=== PATIENT | male | born 1975 | race Caucasian/White ===

== ENCOUNTER 2020-06-22 11:11 | Inpatient (IN) | payer MEDICAID, OTHER ==
[~2020-06-22] VITALS: Ht 188 cm; Wt 129.1 kg
[2020-06-22] MEDS ORDERED: ASPirin 81 mg TAB PO ONE (11:45)
[2020-06-22 11:51] LABS: Basophils # (auto) 0 10 ^3/uL (0-0.2); Basophils % (auto) 0.3 % (0.0-2.0); Eosinophils # (auto) 0.4 10 ^3/uL (0-0.8); Eosinophils % (auto) 4.5 % (0.0-7.0); Hematocrit 45.4 % (41.0-53.0); Hemoglobin 15.4 g/dL (13.5-17.5); Lymphocytes # (auto) 2.8 10 ^3/uL (0.4-5.4); Lymphocytes % (auto) 29.9 % (10.0-50.0); Mean Corpuscular Hemoglobin 32.7 pg (28.0-32.0); Mean Corpuscular Hgb Conc. 33.9 g/dL (32.0-36.0); Mean Corpuscular Volume 96.5 fL (80.0-100.0); Monocytes # (auto) 0.6 10 ^3/uL (0-1.3); Monocytes % (auto) 6.4 % (0.0-12.0); Neutrophils # (auto) 5.6 10 ^3/uL (1.6-8.6); Neutrophils % (auto) 58.9 % (37.0-80.0); Nucleated Red Blood Cells % 0.1 %; Platelet Count (auto) 223 10^3/uL (140-450); Red Cell Distribution Width 14.3 % (11.8-14.3); White Blood Cell 9.5 10^3/uL (4.4-10.8)
[2020-06-22 12:07] LABS: INR 0.99 (0.9-1.15); Partial Thromboplastin Time 28.5 sec (23.0-31.2)
[2020-06-22 12:28] LABS: Alanine Aminotransferase 24 U/L (16-61); Albumin 3.4 g/dL (3.4-5.0); Anion Gap 9 (5-15); Aspartate Aminotransferase 18 U/L (15-37); BUN/Creatinine Ratio 11.3; Blood Urea Nitrogen 8 mg/dL (7-18); Calcium 8.2 mg/dL (8.5-10.1); Carbon Dioxide 24 mmol/L (21-32); Chloride 105 mmol/L (98-107); GFR African American 153 mL/min; GFR Non-African American 126 mL/min; Glucose 99 mg/dL (74-106); Magnesium 2.2 mg/dL (1.6-2.6); Potassium 4.1 mmol/L (3.5-5.1); Sodium 138 mmol/L (136-145)
[2020-06-22 12:33] LABS: Alkaline Phosphatase 87 U/L (45-117); Bilirubin, Total 0.4 mg/dL (0.2-1.0)
[2020-06-22] MEDS ORDERED: MORPHINE SULF INJ 2 MG/ML SYRINGE 1ML IV PRN ×2 (16:00)
[2020-06-22] MEDS ORDERED: NITROGLYCERIN 0.4 MG SL TAB SL PRN (16:00)
[2020-06-22] MEDS ORDERED: ONDANSETRON HCL 4 MG/2 ML VIAL IV PRN (16:00)
[2020-06-22] MEDS ORDERED: ACETAMINOPHEN 500 MG TAB PO PRN (16:00)
[2020-06-22] MEDS ORDERED: hydrALAZINE HCL 20 MG/ML VL IV PRN (16:00)
[2020-06-22] MEDS ORDERED: MORPHINE SULF INJ 2 MG/ML SYRINGE 1ML IV ONE (16:00)
[2020-06-22] MEDS ORDERED: HYDROcodone-ACET 5/325MG TAB PO PRN (16:00)
[2020-06-22] MEDS ORDERED: NITROGLYCERIN 0.4MG/HR TOPICAL PATCH TD ONE (16:00)
[2020-06-22] MEDS ORDERED: TEMAZEPAM 15 MG CAP PO PRN (16:00)
[2020-06-22] MEDS ORDERED: NICOTINE 21MG/24 HR TOPICAL PATCH TD ONE (17:00)
[2020-06-22] MEDS: DOCUSATE SOD 100 MG CAP PO SCH (21:39)
[2020-06-22] MEDS: ATORVASTATIN 20 MG TAB PO SCH (21:39)
[2020-06-22] MEDS: METOPROLOL TARTRATE 25 MG TAB PO SCH (21:40)
[2020-06-22 23:30] VITALS: BP 118/89
[2020-06-23 05:00] VITALS: BP 118/66
[2020-06-23 06:08] LABS: Basophils # (auto) 0.1 10 ^3/uL (0-0.2); Basophils % (auto) 0.6 % (0.0-2.0); Eosinophils # (auto) 0.2 10 ^3/uL (0-0.8); Eosinophils % (auto) 1.7 % (0.0-7.0); Hematocrit 41.8 % (41.0-53.0); Hemoglobin 14.5 g/dL (13.5-17.5); Lymphocytes # (auto) 2.4 10 ^3/uL (0.4-5.4); Lymphocytes % (auto) 25.8 % (10.0-50.0); Mean Corpuscular Hemoglobin 33.7 pg (28.0-32.0); Mean Corpuscular Hgb Conc. 34.7 g/dL (32.0-36.0); Mean Corpuscular Volume 97.2 fL (80.0-100.0); Monocytes # (auto) 0.6 10 ^3/uL (0-1.3); Neutrophils # (auto) 6.2 10 ^3/uL (1.6-8.6); Neutrophils % (auto) 65.9 % (37.0-80.0); Nucleated Red Blood Cells % 0.2 %; Platelet Count (auto) 188 10^3/uL (140-450); Red Cell Distribution Width 14.4 % (11.8-14.3); White Blood Cell 9.4 10^3/uL (4.4-10.8)
[2020-06-23 06:23] LABS: INR 1.02 (0.9-1.15); Partial Thromboplastin Time 26.4 sec (23.0-31.2)
[2020-06-23 06:24] LABS: Calcium 8.4 mg/dL (8.5-10.1); Potassium 4.8 mmol/L (3.5-5.1)
[2020-06-23 09:00] VITALS: BP 127/78
[2020-06-23] MEDS ORDERED: NITROGLYCERIN 0.4MG/HR TOPICAL PATCH TD SCH (10:00)
[2020-06-23] MEDS: METOPROLOL TARTRATE 25 MG TAB PO SCH (10:00)
[2020-06-23] MEDS: DOCUSATE SOD 100 MG CAP PO SCH ×3 (10:30→21:20)
[2020-06-23] MEDS: ASPirin-EC 81 mg tab PO SCH (10:31)
[2020-06-23] MEDS: FAMOTIDINE 20 MG TAB PO SCH (10:31)
[2020-06-23] MEDS: LISINOPRIL 10 MG TAB PO SCH (10:32)
[2020-06-23 13:00] VITALS: BP 121/78
[2020-06-23 17:00] VITALS: BP 148/76
[2020-06-23] MEDS: ATORVASTATIN 20 MG TAB PO SCH (21:00)
[2020-06-23 21:44] LABS: Alcohol, Urine < 3.0 mg/dL (0-10); Amphetamine Screen, Urine NEGATIVE (NEGATIVE); Barbiturate Scree,Urine NEGATIVE (NEGATIVE); Benzodiazephine Screen, Urine NEGATIVE (NEGATIVE); Cannabinoid Screen, Urine POSITIVE (NEGATIVE); Cocaine Screen, Urine NEGATIVE (NEGATIVE); Opiate Scree,Urine NEGATIVE (NEGATIVE); Phencyclidine Screen, Urine NEGATIVE (NEGATIVE)
[2020-06-23 22:00] VITALS: BP 109/72
[2020-06-24 05:00] VITALS: BP 104/79
[2020-06-24 06:04] LABS: Cholesterol 139 mg/dL (< 200); HDL Cholesterol 34 mg/dL (40-59); LDL Cholesterol 94 mg/dL (< 100); Triglycerides 128 mg/dL (< 150)
[2020-06-24 09:00] VITALS: BP 122/61
[2020-06-24] MEDS: FAMOTIDINE 20 MG TAB PO SCH (09:32)
[2020-06-24] MEDS: ASPirin-EC 81 mg tab PO SCH (09:32)
[2020-06-24] MEDS: DOCUSATE SOD 100 MG CAP PO SCH (09:32)
[2020-06-24] MEDS: LISINOPRIL 10 MG TAB PO SCH (09:33)
[2020-06-24 13:00] VITALS: BP 122/75
[2020-06-24 17:19] VITALS: BP 112/70
[2020-06-24 18:16] VITALS: BP 112/70
== END 2020-06-24 18:51 | disposition home or self-care (01) | DRG 198 ==
LOC: ER 11:11 → TELE 11:12 → TELE-WESTW 23:05
PROVIDERS: ADMIT Nurse Practitioner Acute Care; ATTEND Internal Medicine
DX: I25.110 Atherosclerotic heart disease of native coronary artery with unstable angina pectoris (principal); E66.9 Obesity, unspecified; F15.90 Other stimulant use, unspecified, uncomplicated; R00.1 Bradycardia, unspecified; J44.9 Chronic obstructive pulmonary disease, unspecified; Z20.822 Contact with and (suspected) exposure to COVID-19; Z95.5 Presence of coronary angioplasty implant and graft; Z68.38 Body mass index [BMI] 38.0-38.9, adult; I25.2 Old myocardial infarction; Z72.0 Tobacco use; Z82.49 Family history of ischemic heart disease and other diseases of the circulatory system
CPT/HCPCS: 36415; 71046; 80048; 80053; 80061; 80307; 83735; 83880; 84443; 84484; 85025; 85610; 85730; 86141; 87426; 93005; 93306; G0378; J2405

== ENCOUNTER 2020-07-18 07:40 | Emergency (ER) | payer MEDICAID ==
[~2020-07-18] VITALS: Ht 188 cm; Wt 127.0 kg
[2020-07-18 08:14] VITALS: BP 143/82
[2020-07-18] MEDS ORDERED: IBUPROFEN 600 MG TAB PO ONE (08:30)
== END 2020-07-18 08:56 | disposition home or self-care (01) ==
LOC: ER 07:40
DX: S93.492A Sprain of other ligament of left ankle, initial encounter (principal); I25.10 Atherosclerotic heart disease of native coronary artery without angina pectoris; E78.5 Hyperlipidemia, unspecified; F17.210 Nicotine dependence, cigarettes, uncomplicated; Z98.890 Other specified postprocedural states; W22.8XXA Striking against or struck by other objects, initial encounter; Y93.89 Activity, other specified; Y92.89 Other specified places as the place of occurrence of the external cause; Y99.8 Other external cause status
CPT/HCPCS: 73600; 73620

== ENCOUNTER 2020-07-27 08:53 | Emergency (ER) | payer MEDICAID ==
[~2020-07-27] VITALS: Ht 188 cm; Wt 127.0 kg
[2020-07-27 09:20] VITALS: BP 131/81
[2020-07-27] MEDS ORDERED: ACETAMINOPHEN/CODEINE#3 (300/30mg) TAB PO ONE (09:30)
== END 2020-07-27 11:31 | disposition home or self-care (01) ==
LOC: ER 08:53
DX: M79.672 Pain in left foot (principal)
CPT/HCPCS: 73700